=== PATIENT | female | born 1935 | race Caucasian/White ===

== ENCOUNTER 2016-11-10 21:13 | Emergency (ER) | payer MEDICARE, BC ==
[~2016-11-10] VITALS: Ht 154.9 cm; Wt 66.7 kg
[2016-11-10] MEDS ORDERED: ASPI-605 PO (21:35)
[2016-11-10] MEDS ORDERED: PARO10TA26 PO (21:35)
[2016-11-10] MEDS ORDERED: METO25TA6 PO (21:35)
[2016-11-10] MEDS ORDERED: ATOR20TA PO (21:35)
[2016-11-10] MEDS ORDERED: METOPROLOL PO (21:35)
[2016-11-10] MEDS ORDERED: TRIA1TAB3 PO (21:35)
[2016-11-10] MEDS ORDERED: ADENOSINE 6 MG/2 ML SYR IV ONE ×2 (21:45→22:09)
[2016-11-10 22:27] LABS: BASOPHILS % (AUTO) 0.2 % (0.0-2.0); EOSINOPHILS # (AUTO) 0.2 K/uL (0.0-0.7); EOSINOPHILS % (AUTO) 1.9 % (0.0-7.0); HEMATOCRIT 32.8 % (37-47); HEMOGLOBIN 11.1 G/DL (12.0-16.0); LYMPHOCYTES % (AUTO) 19.4 % (20.5-51.5); MEAN CORPUSCULAR HEMOGLOBIN 31.7 UUG (27.0-31.0); MEAN CORPUSCULAR HGB CONC 34 g/dL (32.0-37.0); MONOCYTES # (AUTO) 0.7 K/UL (0.1-1.30); NEUTROPHILS # (AUTO) 7.6 K/UL (1.8-8.9); NEUTROPHILS % (AUTO) 71.5 % (38.5-71.5); PLATELET COUNT (AUTO) 207 K/UL (150-450); RED BLOOD CELL COUNT(AUTO) 3.49 MIL/UL (4.2-5.4); WHITE BLOOD COUNT (AUTO) 10.5 K/UL (4.0-11.2)
[2016-11-10 22:55] LABS: CARBON DIOXIDE 24 mmol/L (21-32); CHLORIDE 103 mmol/L (98-107); CREATININE 1.6 mg/dL (0.6-1.3); GLUCOSE 173 mg/dL (74-106); POTASSIUM 4.5 mmol/L (3.5-5.1); UREA NITROGEN, BLOOD 37 mg/dL (7-18)
[2016-11-10 23:20] LABS: ALANINE AMINOTRANSFERASE 64 U/L (14-59); ALKALINE PHOSPHATASE 98 U/L (50-136); ASPARTATE AMINOTRANSFERASE 64 U/L (15-37); BILIRUBIN,DIRECT 0.1 mg/dL (0.0-0.2); BILIRUBIN,TOTAL 0.3 mg/dL (0.1-1.0); TOTAL PROTEIN, SERUM 6.8 g/dL (6.4-8.2)
[2016-11-11] VITALS: BP 128/75
--- NOTE | 2016-11-11 00:01 | NUR ---
Patient discharged to home in stable conditon. Written and verbal after care instructions given. Patient verbalizes understanding of instructions. Ambulated from ER with stable gait. All belongings with patient. patient will be driven home by taxi, awaiting patient outside ER entrance.
== END 2016-11-11 00:01 | disposition home or self-care (01) ==
LOC: ER 21:15
DX: I47.1 Supraventricular tachycardia (principal); D68.8 Other specified coagulation defects; I10 Essential (primary) hypertension; E78.5 Hyperlipidemia, unspecified; Z79.82 Long term (current) use of aspirin
CPT/HCPCS: 36415; 70030-TC; 71010; 83605; 85025; 85730; 87040; 93005; A4663; J0153